=== PATIENT | female | born 1965 | race Caucasian/White ===

== ENCOUNTER → 2016-12-05 | Outpatient (CLI) | payer OTHER ==
[~2016-12-05] MED LIST: ALBU1AER9 INH; AMIT75TA2 PO; BISM262S7 PO; CALC500C3 PO; CETI10TA10 PO; CHOL100010 PO; CYAN100020 PO; MAGN400T6 PO; MOME200A INH; MULTTAB58 PO; NAPR-1169 PO; NXM/40 PO; RANI150T3 PO; SYN125 PO
--- NOTE | 2016-12-05 13:18 | DIAGNOSTIC IMAGING REPORT ---
NUCLEAR GASTRIC EMPTYING STUDY HISTORY: Nausea K21.9 Acid reflux [id number] LuvnntdevprV37.0 Abdominal bloat COMPARISON: None. TECHNIQUE: Following the oral administration of 1.1 mCi of technetium 99m sulfur colloid in egg sandwich and 8 ounces of water, static abdominal images are obtained anteriorly and posteriorly at 0 minutes, 1 hour, 2 hour, and 4 hour time intervals. Gastric emptying was calculated utilizing the geometric mean method. FINDINGS: There is approximately 91 % activity remaining at the 1 hour time interval (normal is less than 90%), 84 % remaining at the 2 hour time interval (normal is less than 60%), and 11 % activity remaining at the 4 hour time interval (normal is less than 10%). IMPRESSION: Mild gastric emptying delay Electronically signed by: Shan Ortega M.D. 12/05/2016 1:17 PM Dictated Date/Time: 12/05/2016 1:15 PM
== END | disposition home or self-care (01) ==
LOC: C.NUCL 08:00
PROVIDERS: ATTEND Registered Nurse
DX: K20.9 Esophagitis, unspecified (principal); K21.9 Gastro-esophageal reflux disease without esophagitis; K22.2 Esophageal obstruction; R14.0 Abdominal distension (gaseous)

== ENCOUNTER → 2016-12-19 | Outpatient (CLI) | payer OTHER ==
[2016-12-19 09:33] LABS: HEMATOCRIT 41.4 % (37-47); MEAN CELL VOLUME 86.4 fL (80-100); MEAN CORPUSCULAR HEMOGLOBIN 29.2 pg (25-34); MEAN CORPUSCULAR HGB CONC 33.8 g/dl (32-36); MEAN PLATELET VOLUME 9.8 fL (7.4-10.4); PLATELET COUNT 281 K/uL (130-400); RED BLOOD COUNT 4.79 M/uL (4.2-5.4); WHITE BLOOD COUNT 5.07 K/uL (4.8-10.8)
[2016-12-19 09:53] LABS: BLOOD UREA NITROGEN 14 mg/dl (7-18); BUN/CREATININE RATIO 17.4 (10-20); CALCIUM 9.4 mg/dl (8.5-10.1); CARBON DIOXIDE 27 mmol/L (21-32); CHLORIDE 107 mmol/L (98-107); CREATININE 0.82 mg/dl (0.60-1.20); GLUCOSE 94 mg/dl (70-99); POTASSIUM 4.3 mmol/L (3.5-5.1); SODIUM 142 mmol/L (136-145)
== END | disposition home or self-care (01) ==
LOC: C.LAB1850 08:27
PROVIDERS: ATTEND Family Medicine
DX: R53.83 Other fatigue (principal); E06.3 Autoimmune thyroiditis

== ENCOUNTER → 2016-12-21 | Outpatient (CLI) | payer OTHER ==
--- NOTE | 2016-12-21 10:10 | DIAGNOSTIC IMAGING REPORT ---
ULTRASOUND RIGHT UPPER QUADRANT ABDOMEN CLINICAL HISTORY: Right upper quadrant abdominal pain. COMPARISON STUDY: No priors. TECHNIQUE: Real-time, grayscale, and color flow sonography of the right upper quadrant of the abdomen was performed. Images are reviewed in the transverse and longitudinal planes. FINDINGS: Liver: The liver is normal in size and demonstrates heterogeneously increased echotexture consistent with hepatic steatosis. There is no intrahepatic biliary ductal dilatation. The main portal vein is patent. Gallbladder: The gallbladder is normal in appearance. No gallstones are identified. There is no gallbladder wall thickening or pericholecystic fluid. A sonographic Palumbo's sign is reportedly absent. The common bile duct measures up to 0.4 cm in diameter. Pancreas: Not well visualized due to overlying bowel gas. Right kidney: Survey images of the right kidney demonstrate normal size and echotexture. There is no hydronephrosis. Cortical scarring is suggested in the lower pole. Ascites: None. IMPRESSION: 1. No acute sonographic abnormality is identified in the right upper quadrant. No gallstones are seen. 2. Hepatic steatosis. 3. The pancreas was not well visualized due to overlying bowel gas. Electronically signed by: Chito Lira M.D. 12/21/2016 10:09 AM Dictated Date/Time: 12/21/2016 10:08 AM
== END | disposition home or self-care (01) ==
LOC: C.ULTRBC 08:37
PROVIDERS: ATTEND Registered Nurse
DX: R10.11 Right upper quadrant pain (principal); K76.0 Fatty (change of) liver, not elsewhere classified

== ENCOUNTER → 2017-02-25 | Outpatient (CLI) | payer OTHER ==
[2017-02-25 17:52] LABS: ALKALINE PHOSPHATASE 127 U/L (45-117); ALT/SGPT 35 U/L (12-78); AST/SGOT 21 U/L (15-37); THYROID STIMULATING HORMONE 0.096 uIu/ml (0.300-4.500)
[2017-02-26 07:31] LABS: ESTIMATED AVERAGE GLUCOSE 123 mg/dl; HA1C FLAG Normal (Normal)
== END | disposition home or self-care (01) ==
LOC: C.LAB1850 15:46
PROVIDERS: ATTEND Family Medicine
DX: R53.83 Other fatigue (principal); E03.9 Hypothyroidism, unspecified; B35.1 Tinea unguium

== ENCOUNTER → 2017-03-15 | Outpatient (CLI) | payer OTHER ==
[2017-03-15 17:01] LABS: ALKALINE PHOSPHATASE 117 U/L (45-117); ALT/SGPT 45 U/L (12-78); AST/SGOT 29 U/L (15-37)
== END | disposition home or self-care (01) ==
LOC: C.LAB1850 15:21
PROVIDERS: ATTEND Family Medicine
DX: R74.8 Abnormal levels of other serum enzymes (principal)

== ENCOUNTER → 2017-05-06 | Outpatient (CLI) | payer OTHER ==
[2017-05-06 15:12] LABS: THYROID STIMULATING HORMONE 0.109 uIu/ml (0.300-4.500)
== END | disposition home or self-care (01) ==
LOC: C.LAB1850 12:54
PROVIDERS: ATTEND Family Medicine
DX: E03.9 Hypothyroidism, unspecified (principal)

== ENCOUNTER → 2017-05-06 | Outpatient (CLI) | payer OTHER ==
--- NOTE | 2017-05-06 16:13 | MAMMOGRAPHY REPORT ---
BILATERAL DIGITAL SCREENING MAMMOGRAM TOMOSYNTHESIS WITH CAD: 05/06/2017 CLINICAL HISTORY: Routine screening. TECHNIQUE: Breast tomosynthesis in addition to standard 2D mammography was performed. Current study was also evaluated with a Computer Aided Detection (CAD) system. COMPARISON: Comparison is made to exams dated: 05/03/2016 mammogram - [facility], mammogram, 02/19/2014 mammogram, 02/06/2014 mammogram, 01/31/2013 mammogram, and 12/29/2011 mammog [facility]. BREAST COMPOSITION: There are scattered areas of fibroglandular density in both breasts. FINDINGS: No suspicious masses, calcifications, or areas of architectural distortion are noted in ei ther breast. There has been no significant interval change compared to prior exams. Bilateral benign -appearing calcifications are not significantly changed. A linear scar marker denotes a scar on the left anterior breast. Asymmetry in the right 12:00 breast is stable compared to multiple prior exams . IMPRESSION: ACR BI-RADS CATEGORY 2: BENIGN There is no mammographic evidence of malignancy. A 1 year screening mammogram is recommended. The pa tient will receive written notification of the results. Approximately 10% of breast cancers are not detected with mammography. A negative mammographic report should not delay biopsy if a clinically suggestive mass is present. Linda Braun M.D. /:05/06/2017 15:19:39 Radio Engineer: Ronen ABURTO)(Cathleen), [facility] letter sent: Normal 1/2 BI-RADS Code: ACR BI-RADS Category 2: Benign
== END | disposition home or self-care (01) ==
LOC: C.MAMM 13:08
PROVIDERS: ATTEND Obstetrics & Gynecology
DX: Z12.31 Encounter for screening mammogram for malignant neoplasm of breast (principal)

== ENCOUNTER → 2017-06-20 | Outpatient (CLI) | payer OTHER ==
[2017-06-20 17:30] LABS: THYROID STIMULATING HORMONE 0.152 uIu/ml (0.300-4.500)
== END | disposition home or self-care (01) ==
LOC: C.LAB1850 15:48
PROVIDERS: ATTEND Internal Medicine Endocrinology, Diabetes & Metabolism
DX: E03.9 Hypothyroidism, unspecified (principal)

== ENCOUNTER → 2017-08-27 | Outpatient (CLI) | payer OTHER ==
--- NOTE | 2017-08-27 12:30 | DIAGNOSTIC IMAGING REPORT ---
CHEST 2 VIEWS ROUTINE HISTORY: 51 years-old Female J20.9 Acute bronchitisPt with cough and SOB, exposure to mold. Acute bronchitis with cough and shortness of breath COMPARISON: Chest radiograph 09/21/2014 TECHNIQUE: PA and lateral views of the chest FINDINGS: The cardiomediastinal and hilar silhouettes are within normal limits. There is no pneumothorax, pleural effusion, focal airspace consolidation or overt pulmonary edema. Subtle linear subsegmental opacities of the left lung base suggest areas of pleural-parenchymal scarring. Bones of the chest are grossly intact. IMPRESSION: No acute cardiopulmonary process. No focal airspace consolidation to suggest pneumonia. The above report was generated using voice recognition software. It may contain grammatical, syntax or spelling errors. Electronically signed by: Garcia Magaña M.D. 08/27/2017 12:29 PM Dictated Date/Time: 08/27/2017 12:28 PM
[2017-08-27 13:56] LABS: THYROID STIMULATING HORMONE 0.303 uIu/ml (0.300-4.500)
== END | disposition home or self-care (01) ==
LOC: C.RAD1850 11:54
PROVIDERS: ATTEND Internal Medicine Endocrinology, Diabetes & Metabolism
DX: J20.9 Acute bronchitis, unspecified (principal); E03.9 Hypothyroidism, unspecified

== ENCOUNTER → 2017-09-27 | Outpatient (CLI) | payer OTHER ==
[2017-09-27 09:37] LABS: BASO % 0.5 %; BASO ABS # 0.02 K/uL (0-0.2); COMPLETE YES; EOS % 2.3 %; LYMPH ABS # 1.76 K/uL (1.2-3.4); MEAN CELL VOLUME 90.9 fL (80-100); MEAN CORPUSCULAR HEMOGLOBIN 29.4 pg (25-34); MEAN CORPUSCULAR HGB CONC 32.3 g/dl (32-36); MEAN PLATELET VOLUME 10.3 fL (7.4-10.4); NEUT % 47.2 %; PLATELET COUNT 256 K/uL (130-400); RED BLOOD COUNT 4.73 M/uL (4.2-5.4)
[2017-09-27 09:47] LABS: ALT/SGPT 39 U/L (12-78); BLOOD UREA NITROGEN 16 mg/dl (7-18); BUN/CREATININE RATIO 17.5 (10-20); CALCIUM 8.9 mg/dl (8.5-10.1); CARBON DIOXIDE 28 mmol/L (21-32); CHLORIDE 106 mmol/L (98-107); CHOLESTEROL 187 mg/dl (0-200); CREATININE 0.89 mg/dl (0.60-1.20); GLUCOSE 87 mg/dl (70-99); POTASSIUM 4.1 mmol/L (3.5-5.1); SODIUM 140 mmol/L (136-145); TRIGLYCERIDES 87 mg/dl (0-150); VERY LOW DENSITY LIPOPROT CALC 17 mg/dl
[2017-09-27 09:58] LABS: ALKALINE PHOSPHATASE 102 U/L (45-117); AST/SGOT 26 U/L (15-37); CHOLESTEROL/HDL RATIO 3.5; HDL CHOLESTEROL 53 mg/dl; LDL CHOLESTEROL CALCULATED 117 mg/dl; THYROID STIMULATING HORMONE 0.526 uIu/ml (0.300-4.500)
== END | disposition home or self-care (01) ==
LOC: C.LAB1850 07:07
PROVIDERS: ATTEND Neuromusculoskeletal Medicine & OMM
DX: Z00.00 Encounter for general adult medical examination without abnormal findings (principal); E03.9 Hypothyroidism, unspecified; R53.83 Other fatigue; R42 Dizziness and giddiness

== ENCOUNTER → 2018-01-08 | Outpatient (CLI) | payer OTHER ==
[2018-01-08 17:53] LABS: BLOOD UREA NITROGEN 16 mg/dl (7-18); CALCIUM 9.2 mg/dl (8.5-10.1); CARBON DIOXIDE 30 mmol/L (21-32); CREATININE 0.91 mg/dl (0.60-1.20); GLUCOSE 81 mg/dl (70-99); POTASSIUM 4.1 mmol/L (3.5-5.1); SODIUM 141 mmol/L (136-145)
== END | disposition home or self-care (01) ==
LOC: C.LAB1850 16:10
PROVIDERS: ATTEND Physician Assistant Medical
DX: E03.9 Hypothyroidism, unspecified (principal); R00.0 Tachycardia, unspecified

== ENCOUNTER → 2018-01-22 | Outpatient (CLI) | payer OTHER | END | disposition home or self-care (01) | LOC: C.LAB1850 15:49 | PROVIDERS: ATTEND Internal Medicine Endocrinology, Diabetes & Metabolism | DX: E03.9 Hypothyroidism, unspecified (principal) ==

== ENCOUNTER → 2018-05-07 | Outpatient (CLI) | payer OTHER ==
[~2018-05-07] MED LIST changes: -NAPR-1169 PO; +NAPR-22 PO
== END | disposition home or self-care (01) ==
LOC: C.LAB1850 15:47
PROVIDERS: ATTEND Physician Assistant
DX: E03.9 Hypothyroidism, unspecified (principal)

== ENCOUNTER 2024-02-17 09:12 | Observation (INO) ==
--- NOTE | 2024-02-17 09:33 | Emergency Department Note ---
History of Present Illness General Chief complaint: Shortness of Breath/Dyspnea Stated complaint: TROUBLE BREATHING, COUGH, CHEST PAINS Time Seen by Provider: 02/17/24 09:25 History of Present Illness Maximum Pain Intensity: 3 This is a 58-year-old female that presents to the emergency department via private vehicle with complaints of "trouble breathing, cough, chest pain". The patient states that this past Saturday she developed what she describes as cold-like symptoms to include cough, sneezing and a sore throat. She then notes that the breathing worsened on Saturday evening and she could not take a deep breath. She also notes intermittent temperature fluctuations described as freezing, sweating and cold. She now notes that the nose and draining a darkish yellow with a small amount of blood and there is also yellow sputum when she coughs. She notes a history of smoking but last of which was 31 years ago. No history of COPD. She does note a history of asthma. She does have some central chest pain with the dyspnea. Current pain 12/21. No history of LA or PE. Home Medications Medication Instructions Recorded Confirmed Type cyanocobalamin (vitamin B-12) 1 tab PO QAM ##0 01/04/16 02/17/24 History 1,000 mcg tablet multivitamin 1 cap PO QAM ##0 09/20/16 02/17/24 History cetirizine 10 mg tablet (Zyrtec) 10 mg PO HS #1 tab 05/18/19 02/17/24 Rx cholecalciferol (vitamin D3) 10 400 units PO DAILY #90 tabs 05/18/19 02/17/24 Rx mcg (400 unit) tablet fluticasone furoate 200 1 inh inhalation DAILY #180 ea 09/04/23 02/17/24 Rx mcg-vilanterol 25 mcg/dose inhalation powder (Breo Ellipta) levothyroxine 125 mcg tablet 125 mcg PO QAM #30 tabs 09/18/23 02/17/24 Rx sertraline 100 mg tablet 150 mg (1.5 x 100 mg) PO DAILY 90 01/07/24 02/17/24 Rx days #135 tabs clobetasol 0.05 % topical cream 1 applic topical DAILY PRN Rash 02/17/24 02/17/24 History Allergies Allergy/AdvReac Type Severity Reaction Status Date / Time Sulfa (Sulfonamide Allergy Mild RASH Verified 12/27/23 13:03 Antibiotics) latex Allergy Unknown RASH Verified 12/27/23 13:03 morphine Allergy Unknown VOMITING Verified 12/27/23 13:03 animal dander Allergy Verified 12/27/23 13:03 bupropion [From Wellbutrin] Allergy Verified 12/27/23 13:03 desvenlafaxine [From Pristiq] Allergy Verified 12/27/23 13:03 duloxetine [From Cymbalta] Allergy Verified 12/27/23 13:03 grass pollen Allergy Verified 12/27/23 13:03 house dust Allergy Verified 12/27/23 13:03 mold Allergy Verified 12/27/23 13:03 topiramate [From Topamax] Allergy Verified 12/27/23 13:03 tuberculin,PPD,multi-puncture Allergy Verified 12/27/23 13:03 venlafaxine Allergy Verified 12/27/23 13:03 citalopram AdvReac Verified 12/27/23 13:03 escitalopram [From Lexapro] AdvReac Verified 12/27/23 13:03 Venlafaxine Analogues AdvReac Verified 12/27/23 13:03 Past Med/Surg History Medical History COVID-19 Lichen sclerosus GERD (gastroesophageal reflux disease) Depression Anxiety Migraine Tachycardia Hypertension Sleep apnea HAD SLEEP STUDY TEST, NO CPAP OR BIPAP ORDERED Lung nodules Asthma Hypothyroid Surgical History Nausea and vomiting after administration of anesthetic agent History of breast biopsy L BENIGN History of dilatation and curettage History of total hip arthroplasty R HIP X2 History of esophagogastroduodenoscopy (EGD) History of tooth extraction WISDOM TEETH History of tonsillectomy Family History Mother Diabetes Kidney disease Congestive heart failure Unknown Family history of diabetes mellitus Son Asthma Father Carotid artery aneurysm Brother Dyslipidemia Brother Dyslipidemia Brother No problems noted. Son No problems noted. Daughter No problems noted. Denies family history of Ovarian cancer Prostate cancer Myocardial infarction Breast cancer Colorectal cancer Social History Smoking Status: Former smoker Tobacco Type: Cigarettes Age Started Using Tobacco: 14; Age Quit Using Tobacco: 28; packs per day: 1; Cigarettes Per Day: 20; Second Hand Exposure: No (PARENTS, BROTHER, SMOKED); Do You Dip or Chew Tobacco: No; Hx Alcohol Use: No Hx Substance Use: No Preferred Language: French Communication Ability: Effective Visual Impairment: No Limitations Hearing Ability: Normal Administrative Assistant Required: No Beliefs That Will Affect Care: None marital status: Current Living Situation: Spouse current occupational status: employed current occupation: nurse educator How many Children do You have: 3 Other Information That Helps Us Care for You: No Feels Safe at Home: Yes Safety Concerns: Feels Safe At This Time Childhood Exposure to Second-Hand Smoke: Yes Diet: regular caffeine: Yes during the past year weight has: remained stable Dental Care, Regularly: Yes Physical Activity Frequency: Daily Seatbelt Use: always Sunscreen Use: Yes Assistive Devices: Glasses Review of Systems A total of 10 systems reviewed and were otherwise negative Physical Exam Vital Signs Vital Signs - 24 hr 02/17/24 09:20 02/17/24 09:30 02/17/24 09:30 Temperature 36.1 C L Temperature Source Temporal Artery Scan Pulse Rate 88 Pulse Rate [Apical] Pulse Rhythm Respiratory Rate 26 H Respiratory Effort / Characteristics Labored Blood Pressure 120/76 Blood Pressure [Left Arm] Blood Pressure Mean 90 Blood Pressure Mean [Left Arm] Blood Pressure Position [Left Arm] Pulse Oximetry 96 96 Oxygen Delivery Method Room Air Room Air Room Air Sepsis New/Unexplained Change in Mental Status No Sepsis Action Taken by Nursing No Action Required 02/17/24 09:30 02/17/24 09:31 02/17/24 09:56 Temperature Temperature Source Pulse Rate 79 84 Pulse Rate [Apical] 84 Pulse Rhythm Regular Respiratory Rate 26 H 18 Respiratory Effort / Characteristics Spontaneous Short of Breath Blood Pressure Blood Pressure [Left Arm] Blood Pressure Mean Blood Pressure Mean [Left Arm] Blood Pressure Position [Left Arm] Pulse Oximetry 96 95 Oxygen Delivery Method Room Air Room Air Sepsis New/Unexplained Change in Mental Status Sepsis Action Taken by Nursing 02/17/24 11:10 Temperature Temperature Source Pulse Rate Pulse Rate [Apical] 78 Pulse Rhythm Respiratory Rate 18 Respiratory Effort / Characteristics Blood Pressure Blood Pressure [Left Arm] 139/65 Blood Pressure Mean Blood Pressure Mean [Left Arm] 89 Blood Pressure Position [Left Arm] Sitting Pulse Oximetry 98 Oxygen Delivery Method Sepsis New/Unexplained Change in Mental Status Sepsis Action Taken by Nursing VITAL SIGNS - Vital signs and nursing notes were reviewed. Tachypnic, otherwise stable. Afebrile. GENERAL -58-year-old female appearing her stated age who is in mild respiratory distress noting increased work of breathing and conversational dyspnea. Communicates well with provider and answers questions appropriately. SKIN - Without rashes. HEAD - NC/AT. EYES - PERRL with EOMI bilaterally. Sclera anicteric. EARS - No deformities of external structures noted on gross examination bilaterally. External auditory canals without discharge or otorrhea. Tympanic membranes pearly sibley without retraction or bulging. No fluid or purulent material visualized behind the TM. Handle of malleus, umbo, cone of light, pars tensa/flaccid all easily visualized. NOSE - Midline and without cyanosis. No epistaxis or purulent drainage noted. Septum midline without deviation or septal hematoma noted. MOUTH/OROPHARYNX - Without perioral cyanosis. Buccal mucosa pink and moist and without leukoplakia. Tongue midline with equal elevation of palate bilaterally. No tonsillar hypertrophy, erythema, or exudates noted. NECK - Neck with FROM. Supple to palpation. No lymphadenopathy noted. No nuchal rigidity. LUNGS -his bilateral expiratory wheezing noted. No drooling, stridor, trismus or tripoding. Normal phonation. Mild conversational dyspnea. CARDIAC - RRR with S1/S2. No murmur, rubs, or gallops appreciated. EXTREMITIES - No clubbing or peripheral cyanosis. +5/5 strength noted in UE/LE bilaterally. NEUROLOGIC - Cranial nerves II through XII grossly intact. PSYCH - A&Ox3 and cooperates fully with examiner. Pt is very pleasant and interacts well with examiner. Course Administered Medications Albuterol (Albut/Ipratrop 3mg/0.5mg Neb 3 Ml Vial) 3 ml INH Q6R MATT Stop: 03/18/24 13:18 Last Admin: 02/17/24 14:02 Dose: 3 ml Documented By: EAM Discontinued Medications Albuterol (Albut/Ipratrop 3mg/0.5mg Neb 3 Ml Vial) 12 ml NEB ONE ONE; Protocol Stop: 02/17/24 09:34 Last Admin: 02/17/24 09:54 Dose: 12 ml Documented By: BEBE Ceftriaxone Sodium (Rocephin) 2,000 mg in 50 mls @ 100 mls/hr IV NOW STA Stop: 02/17/24 12:27 Last Infusion: 02/17/24 14:34 Dose: Infused Documented By: Admin: 02/17/24 12:34 Dose: 100 mls/hr Documented By: SANDOR Sodium Chloride (Nss) 1,000 mls @ 500 mls/hr IV .Q2H MATT Stop: 02/17/24 13:59 Last Infusion: 02/17/24 14:37 Dose: Infused Documented By: Admin: 02/17/24 12:35 Dose: 500 mls/hr Documented By: SANDOR Dexamethasone 10 mg/ Syringe 2.5 mls @ 1.25 mls/min IV ONE STA Stop: 02/17/24 12:30 Last Admin: 02/17/24 13:36 Dose: 1.25 mls/min Documented By: SANDOR Magnesium Sulfate/Dextrose (Magnesium Sulfate / D5w) 1 gm in 100 mls @ 600 mls/hr IV Q10M MATT Stop: 02/17/24 12:51 Last Infusion: 02/17/24 14:34 Dose: Infused Documented By: Admin: 02/17/24 13:15 Dose: 600 mls/hr Documented By: Infusion: 02/17/24 13:14 Dose: Infused Documented By: Admin: 02/17/24 12:54 Dose: 600 mls/hr Documented By: SANDOR Azithromycin 500 mg/ Dextrose 255 mls @ 127.5 mls/hr IV NOW STA Stop: 02/17/24 14:34 Last Infusion: 02/17/24 15:42 Dose: Infused Documented By: Admin: 02/17/24 13:38 Dose: 127.5 mls/hr Documented By: SANDOR Ioversol (Optiray 320 125ml) 119 ml IV ONCE ONE Stop: 02/17/24 11:51 Last Admin: 02/17/24 11:51 Dose: 119 ml Documented By: LYNNE Methylprednisolone (Methylprednisolone 125 Mg/2 Ml Vial) 60 mg IV NOW STA Stop: 02/17/24 11:59 Last Admin: 02/17/24 12:35 Dose: Not Given Documented By: SANDOR Medical Decision Making Laboratory Data 02/17/24 09:30 02/17/24 09:30 Lab Results 02/17/24 02/17/24 02/17/24 Range/Units 09:30 09:37 10:17 WBC 5.86 (4.8-10.8) K/ul RBC 5.21 (4.20-5.40) M/uL Hgb 15.3 (12.0-16.0) g/dl Hct 45.3 (37.0-47.0) % MCV 86.9 (80.0-100.0) fL MCH 29.4 (25.0-34.0) pg MCHC 33.8 (32.0-36.0) g/dL RDW Std Deviation 45.6 (36.4-46.3) fL RDW Coeff of Velia 14.2 (11.5-14.5) % Plt Count 256 (130-400) K/uL MPV 9.8 (9.4-12.4) fL Immature Gran % (Auto) 0.2 % Neut % (Auto) 43.6 % Lymph % (Auto) 41.0 % Morton % (Auto) 11.1 % Eos % (Auto) 3.4 % Baso % (Auto) 0.7 % Neut # (Auto) 2.56 (1.40-6.50) K/uL Lymph # (Auto) 2.40 (1.20-3.40) K/uL Morton # (Auto) 0.65 H (0.11-0.59) K/uL Eos # (Auto) 0.20 (0.00-0.50) K/uL Baso # (Auto) 0.04 (0.00-0.20) K/uL Immature Gran # (Auto) 0.01 (0.01-0.20) K/uL Toxic Vacuolation 1+ PT 10.3 (9.0-12.0) Seconds INR 0.9 (0.9-1.1) APTT 28 (21-31) Seconds PTT Ratio 1.0 D-Dimer 840 H* (0-500) ug/L FEU VBG pH 7.49 H (7.36-7.41) VBG pCO2 31 L (38-50) mmHg VBG pO2 64 mmHg VBG HCO3 24 mmol/L VBG O2 Saturation 93.4 % VBG Base Excess 1.0 mEq/L Sodium 138 (136-145) mmol/L Potassium 3.9 (3.5-5.1) mmol/L Chloride 105 (98-107) mmol/L Carbon Dioxide 25 (21-32) mmol/L Anion Gap 8 (3-11) BUN 11 (6-23) mg/dl Creatinine 0.63 (0.6-1.2) mg/dl Est Cr Clr Drug Dosing 98.8 ml/min Est GFR ( Amer) 113.0 ml/min Est GFR (Non-Af Amer) 97.5 ml/min BUN/Creatinine Ratio 17.5 (10-20) Glucose 88 (70-99(Fasting)) mg/dl Calcium 9.0 (8.6-10.3) mg/dl Magnesium 2.2 (1.7-2.4) mg/dl Total Bilirubin 0.7 (0.2-1.0) mg/dl AST 22 (13-39) U/L ALT 22 (7-52) U/L Alkaline Phosphatase 69 (34-104) U/L Troponin I High Sens 2.9 (0-14) pg/ml Total Protein 7.8 (6.0-8.3) gm/dl Albumin 4.3 (3.4-5.0) gm/dl Globulin 3.5 (2.5-4.0) gm/dl Albumin/Globulin Ratio 1.2 (0.9-2) Procalcitonin 0.14 (0-0.5) ng/ml TSH 0.349 (0.300-4.500) uIu/ml Adenovirus (PCR) Not Detected (NotDetected) B. pertussis DNA (PCR) Not Detected (NotDetected) B.parapertussis DNA PCR Not Detected (NotDetected) C. pneumoniae DNA (PCR) Not Detected (NotDetected) Coronavirus OC43 (PCR) Not Detected (NotDetected) Coronavirus HKU1 (PCR) Not Detected (NotDetected) Coronavirus 229E (PCR) Not Detected (NotDetected) SARS-CoV-2 (PCR) Not Detected (NotDetected) Coronavirus NL63 (PCR) Not Detected (NotDetected) Human Metapneumovir PCR Not Detected (NotDetected) Influenza Type A (PCR) Not Detected (NotDetected) Influenza Type B (PCR) Not Detected (NotDetected) M. pneumoniae (PCR) Not Detected (NotDetected) Parainfluenza 1 (PCR) Not Detected (NotDetected) Parainfluenza 2 (PCR) Not Detected (NotDetected) Parainfluenza 3 (PCR) DETECTED A (NotDetected) Parainfluenza 4 (PCR) Not Detected (NotDetected) RSV (PCR) Not Detected (NotDetected) Entero/Rhino (PCR) Not Detected (NotDetected) Imaging Data Radiologist's Impression: Chest X-Ray 02/17/24 09:32 XR chest 1V portable HISTORY: dyspnea COMPARISON: Chest 07/06/2021. FINDINGS: The lungs are clear. Cardiac silhouette is normal in size. No pleural effusions. No pneumothorax. IMPRESSION: No acute process. ACT 112: Negative or not required by law. Electronically signed by: Jeramie Brooks M.D. 02/17/2024 10:00 AM Chest CTA 02/17/24 10:54 CT ANGIOGRAPHY OF THE CHEST, PULMONARY EMBOLUS PROTOCOL CLINICAL HISTORY: dyspnea, elevated D dimer COMPARISON STUDY: Chest CT July 25, 2023. Chest radiograph performed earlier today. TECHNIQUE: Following IV administration of 119 mL of Optiray, helical axial images of the chest were obtained utilizing the pulmonary embolus protocol. Maximal intensity projections and sagittal and coronal reformats were viewed on an independent 3D workstation. IV contrast was administered without complication. Automated exposure control was utilized for the study. A dose lowering technique was utilized adhering to the principles of ALARA. CT DOSE: 709.16 mGy.cm FINDINGS: No pulmonary emboli are identified although this exam is significantly compromised by respiratory motion artifact which obscures the lower lobe pulmonary arteries. There is no thoracic aortic dissection. Size of the heart is normal. There is no pericardial effusion. Prominent bilateral lower cervical and upper mediastinal lymph nodes have increased in size since CT of July 25, 2023. An index left level 4 cervical lymph node on image 199 measures 8 mm in short axis diameter. A right paratracheal lymph node on image 170 measures 0.7 cm. The central airways are patent. Lungs are suboptimally assessed due to respiratory motion. Moderate alveolar opacities within the right middle lobe are present. There is no cavitation. Central airways are patent. There is no pneumothorax or pleural effusion. Visualized portions of the upper abdomen are unremarkable. IMPRESSION: 1. Exam significantly compromised by respiratory motion. No pulmonary emboli identified. 2. Moderate right middle lobe alveolar opacities suggestive of pneumonia. 3. Prominent bilateral lower cervical and upper mediastinal lymph nodes. Although indeterminate, these are probably benign and may be reactive. A follow- up chest CT in 6 months to ensure resolution is recommended. ACT 112: Negative or not required by law. Electronically signed by: Mc Giles M.D. 02/17/2024 12:22 PM MDM Narrative Patient was seen and evaluated as above in room C09. Review was performed of triage nursing notes and vital signs. A thorough history and physical examination was performed. She presents to us today for evaluation of trouble breathing, cough and chest pain. This has progressively been worsening since this past Saturday when she developed cold-like symptoms. She does have wheezing on examination which is quite audible. Options of care were discussed with the patient. IV access was established. Labs were drawn. EKG was performed and reveals normal sinus rhythm at a rate of 85 bpm. QTc 404. QRS 82. There is no ST elevation. Labs reveal no leukocytosis or concerning anemia. D-dimer elevated 840 therefore chest x-ray was complemented by a CT scan of the chest. VBG pH 7.49 with a pCO2 of 31. No evidence of kidney or liver failure emergently. Troponin normal. TSH reveals euthyroid state. Bio fire panel was positive for parainfluenza 3. Chest x-ray was negative. CT of the chest does reveal moderate right middle lobe alveolar opacities suggestive of pneumonia. I do believe that further evaluation and management in the inpatient setting is warranted noting the patient's persistent wheezing and trouble breathing. DuoNeb breathing treatment was provided here, as well as IV fluids, IV steroids, IV ceftriaxone. Case discussed with the hospitalist service. Please refer to further documentation regarding her stay. GCS: 15 In the evaluation and treatment of this patient the following differential diagnoses were entertained: LA, PE, pericarditis, costochondritis, pneumonia, pneumothorax, among others Impression & Plan Asthma exacerbation, Parainfluenza virus infection, Bilateral wheezing, Acute dyspnea Discharge Plan Visit Data Chief Complaint: Shortness of Breath/Dyspnea Stated Complaint: TROUBLE BREATHING, COUGH, CHEST PAINS ED Provider: Kimo Mays ED Midlevel Provider: Parish Carrasco Discharge Problem: Asthma exacerbation, Parainfluenza virus infection, Bilateral wheezing, Acute dyspnea Patient Disposition: Admitted As Inpatient Condition: Good Discharge Instructions Interventions: ED Discharge Assessment Last Done: 02/17/24 13:02
[2024-02-17] MEDS: ALBUT/IPRATROP 3MG/0.5MG NEB 3 ML VIAL NEB ONE (09:54)
[2024-02-17 09:59] LABS: Hematocrit (blood only) 45.3 % (37.0-47.0); Hemoglobin 15.3 g/dl (12.0-16.0); Mean Corpuscular Hemoglobin 29.4 pg (25.0-34.0); Mean Corpuscular Hgb Conc 33.8 g/dL (32.0-36.0); Mean Corpuscular Volume 86.9 fL (80.0-100.0); Mean Platelet Volume 9.8 fL (9.4-12.4); Platelet Count 256 K/uL (130-400); RDW Coefficient of Variation 14.2 % (11.5-14.5); RDW Standard Deviation 45.6 fL (36.4-46.3); Red Blood Count 5.21 M/uL (4.20-5.40); White Blood Count 5.86 K/ul (4.8-10.8)
--- NOTE | 2024-02-17 10:01 | XRay Report ---
XR chest 1V portable HISTORY: dyspnea COMPARISON: Chest 07/06/2021. FINDINGS: The lungs are clear. Cardiac silhouette is normal in size. No pleural effusions. No pneumot horax. IMPRESSION: No acute process. ACT 112: Negative or not required by law. Electronically signed by: Jeramie Brooks M.D. 02/17/2024 10:00 AM
[2024-02-17 10:13] LABS: Albumin Globulin Ratio 1.2 (0.9-2); Albumin Level 4.3 gm/dl (3.4-5.0); BUN Creatinine Ratio 17.5 (10-20); Bilirubin,Total 0.7 mg/dl (0.2-1.0); Creatinine Clr Calc Pharmacy 98.8 ml/min; Est GFR (Non-African American) 97.5 ml/min; Globulin 3.5 gm/dl (2.5-4.0); Magnesium 2.2 mg/dl (1.7-2.4); Potassium 3.9 mmol/L (3.5-5.1); Total Protein 7.8 gm/dl (6.0-8.3)
[2024-02-17 10:18] LABS: Troponin I High Sensitivity 2.9 pg/ml (0-14)
[2024-02-17 10:20] LABS: INR 0.9 (0.9-1.1); Partial Thromboplastin Time 28 Seconds (21-31); Prothrombin Time 10.3 Seconds (9.0-12.0)
[2024-02-17 10:21] LABS: Basophils # (auto) 0.04 K/uL (0.00-0.20); Basophils % (auto) 0.7 %; Eosinophils % (auto) 3.4 %; Immature Granulocytes # (auto) 0.01 K/uL (0.01-0.20); Immature Granulocytes % (auto) 0.2 %; Monocytes # (auto) 0.65 K/uL (0.11-0.59); Monocytes % (auto) 11.1 %; Neutrophils # (auto) 2.56 K/uL (1.40-6.50); Neutrophils % (auto) 43.6 %; Toxic Vacuolation 1+
[2024-02-17 10:27] LABS: Thyroid Stimulating Hormone 0.349 uIu/ml (0.300-4.500)
[2024-02-17 10:28] LABS: HCO3 VBG 24 mmol/L; Oxygen Saturation VBG 93.4 %; PCO2 VBG 31 mmHg (38-50); PO2 VBG 64 mmHg; pH VBG 7.49 (7.36-7.41)
[2024-02-17 10:36] LABS: D Dimer 840 ug/L FEU (0-500)
[2024-02-17 10:40] LABS: Adenovirus PCR Not Detected (NotDetected); Bordetella parapertussis PCR Not Detected (NotDetected); Bordetella pertussis PCR Not Detected (NotDetected); Chlamydia pneumoniae PCR Not Detected (NotDetected); Coronavirus 229E PCR Not Detected (NotDetected); Coronavirus CoV-2 (COVID19)PCR Not Detected (NotDetected); Coronavirus HKU1 PCR Not Detected (NotDetected); Coronavirus NL63 PCR Not Detected (NotDetected); Coronavirus OC43PCR Not Detected (NotDetected); Human Metapneumovirus PCR Not Detected (NotDetected); Influenza A PCR Not Detected (NotDetected); Influenza B PCR Not Detected (NotDetected); Mycoplasma pneumoniae PCR Not Detected (NotDetected); Parainfluenza Virus 1 PCR Not Detected (NotDetected); Parainfluenza Virus 2 PCR Not Detected (NotDetected); Parainfluenza Virus 4 PCR Not Detected (NotDetected); Respiratory Syncytial VirusPCR Not Detected (NotDetected); Rhinovirus/Enterovirus PCR Not Detected (NotDetected)
[2024-02-17 10:47] LABS: Parainfluenza Virus 3 PCR DETECTED (NotDetected)
[2024-02-17] MEDS: OPTIRAY 320 125ml IV ONE (11:51)
--- NOTE | 2024-02-17 12:22 | History & Physical Report ---
Date of Service February 17, 2024 Assessment & Plan (1) Parainfluenza virus infection: Plan: Worsening SOB and cold-like symptoms since Sunday 02/11 CXR revealed no acute processes VB.49/31/64/24 Parainfluenza 3 (+) on arrival Standard isolation precautions Chest CTA revealed no pulmonary emboli, but did note moderate RML opacity suggestive of pneumonia No leukocytosis; afebrile Procalcitonin ordered, pending Sputum culture ordered, pending Supportive care with IV fluids and pain control Incentive spirometry, flutter valve Guaifenesin 600 mg p.o. q12h Acetaminophen as needed for body aches/fever Supplemental oxygen as needed to maintain SpO2 >94% Continuous telemetry monitoring A.m. CBC, BMP, mag (2) Asthma exacerbation: Plan: Decadron 4 mg IV q6h Patient reports she does not do well on prednisone/Solu-Medrol Budesonide 0.5 mg neb BIDR Formoterol 20 mcg neb BIDR DuoNeb 3 mL q6r Azithromycin 500 mg IV q24h for now; QTc 404 (3) Hypothyroidism: Plan: TSH WNL Continue levothyroxine (4) Anxiety: Plan: Continue sertraline Plan Disposition: Obs -admit to MedSurg telemetry Full code Regular diet VTE PPx: Lovenox 40 mg SQ q24h History of Present Illness Chief Complaint: SOB/Dyspnea Primary Care Provider: Eulalia Shi MD Adeel is a 58-year-old female with PMH of asthma, hypothyroidism, Graves' disease, depression, anxiety, GERD, and allergic rhinitis. She presented for worsening SOB and cold-like symptoms that began on Sunday 02/11. Patient reports that started with a bad sore throat and sneezing, then progressed Saturday night to chills and night sweats. She has been taking naproxen 1 tablet daily for body aches. She endorses SOB both at rest and with exertion, which is new for her. She also reports that the breathing is worse when she lies flat on her back, and becomes exacerbated with deep breaths, which cause coughing fits. She does not use supplemental oxygen at home. Additional symptoms include loss of taste and smell, wheezing, and 1 episode of hemoptysis (however patient did note that she had a nosebleed just prior to this episode, and did not have hemoptysis prior to the nosebleed). She does not believe she has been around any sick contacts. She does have an inhaler at home, that she normally uses as needed, but she has been requiring it around 3 times per day over the past week. The only medication she took this morning was levothyroxine. In the past, patient reports she has not done well on prednisone tapers, and requests to avoid if possible. No history of DVT/PE. Patient denies smoking, tobacco use, and recent alcohol use. Patient's vitals are stable at time of admission; SpO2 98% on RA. ED course: Rocephin 2000 mg IV DuoNeb 12 mL Solu-Medrol 60 mg IV NSS 1000 mL IV ROS: Patient endorses worsening fatigue, chills, night-sweats, joint pain / body aches, sore throat, loss of taste/smell, chest tightness, productive cough (dark yellow with one episode of blood-tinged sputum; in the setting of right-sided nose bleed; was not coughing up blood prior to nose bleed), wheezing, SOB both at rest and with exertion, and orthopnea. Patient denies fever, dizziness, lightheadedness, UMANZOR, changes in vision, pleuritic CP, pain or pressure in the left arm/jaw, abdominal pain, N/V/D, changes in urinary/bowel habits, or numbness/tingling/swelling/redness in the legs. Allergies Allergy/AdvReac Type Severity Reaction Status Date / Time Sulfa (Sulfonamide Allergy Mild RASH Verified 12/27/23 13:03 Antibiotics) latex Allergy Unknown RASH Verified 12/27/23 13:03 morphine Allergy Unknown VOMITING Verified 12/27/23 13:03 animal dander Allergy Verified 12/27/23 13:03 bupropion [From Wellbutrin] Allergy Verified 12/27/23 13:03 desvenlafaxine [From Pristiq] Allergy Verified 12/27/23 13:03 duloxetine [From Cymbalta] Allergy Verified 12/27/23 13:03 grass pollen Allergy Verified 12/27/23 13:03 house dust Allergy Verified 12/27/23 13:03 mold Allergy Verified 12/27/23 13:03 topiramate [From Topamax] Allergy Verified 12/27/23 13:03 tuberculin,PPD,multi-puncture Allergy Verified 12/27/23 13:03 venlafaxine Allergy Verified 12/27/23 13:03 citalopram AdvReac Verified 12/27/23 13:03 escitalopram [From Lexapro] AdvReac Verified 12/27/23 13:03 Venlafaxine Analogues AdvReac Verified 12/27/23 13:03 Home Medications Medication Instructions Recorded Confirmed Type cyanocobalamin (vitamin B-12) 1 tab PO QAM ##0 01/04/16 02/17/24 History 1,000 mcg tablet multivitamin 1 cap PO QAM ##0 09/20/16 02/17/24 History cetirizine 10 mg tablet (Zyrtec) 10 mg PO HS #1 tab 05/18/19 02/17/24 Rx cholecalciferol (vitamin D3) 10 400 units PO DAILY #90 tabs 05/18/19 02/17/24 Rx mcg (400 unit) tablet fluticasone furoate 200 1 inh inhalation DAILY #180 ea 09/04/23 02/17/24 Rx mcg-vilanterol 25 mcg/dose inhalation powder (Breo Ellipta) levothyroxine 125 mcg tablet 125 mcg PO QAM #30 tabs 09/18/23 02/17/24 Rx sertraline 100 mg tablet 150 mg (1.5 x 100 mg) PO DAILY 90 01/07/24 02/17/24 Rx days #135 tabs clobetasol 0.05 % topical cream 1 applic topical DAILY PRN Rash 02/17/24 0 02/17/24 History Past Med/Surg History Medical History COVID-19 Lichen sclerosus GERD (gastroesophageal reflux disease) Depression Anxiety Migraine Tachycardia Hypertension Sleep apnea HAD SLEEP STUDY TEST, NO CPAP OR BIPAP ORDERED Lung nodules Asthma Hypothyroid Surgical History Nausea and vomiting after administration of anesthetic agent History of breast biopsy L BENIGN History of dilatation and curettage History of total hip arthroplasty R HIP X2 History of esophagogastroduodenoscopy (EGD) History of tooth extraction WISDOM TEETH History of tonsillectomy Family History Mother Diabetes Kidney disease Congestive heart failure Unknown Family history of diabetes mellitus Son Asthma Father Carotid artery aneurysm Brother Dyslipidemia Brother Dyslipidemia Brother No problems noted. Son No problems noted. Daughter No problems noted. Denies family history of Ovarian cancer Prostate cancer Myocardial infarction Breast cancer Colorectal cancer Social History Smoking Status: Former smoker Tobacco Type: Cigarettes Age Started Using Tobacco: 14; Age Quit Using Tobacco: 28; packs per day: 1; Cigarettes Per Day: 20; Second Hand Exposure: No (PARENTS, BROTHER, SMOKED); Do You Dip or Chew Tobacco: No; Hx Alcohol Use: No Hx Substance Use: No Preferred Language: Iranian Communication Ability: Effective Visual Impairment: No Limitations Hearing Ability: Normal Floatlight Loading Supervisor Required: No Beliefs That Will Affect Care: None marital status: Current Living Situation: Spouse current occupational status: employed current occupation: art educator How many Children do You have: 3 Other Information That Helps Us Care for You: No Feels Safe at Home: Yes Safety Concerns: Feels Safe At This Time Childhood Exposure to Second-Hand Smoke: Yes Diet: regular caffeine: Yes during the past year weight has: remained stable Dental Care, Regularly: Yes Physical Activity Frequency: Daily Seatbelt Use: always Sunscreen Use: Yes Assistive Devices: None Review of Systems Review of Systems: See HPI above Physical Exam Physical Exam: General: Mild respiratory distress; pleasant affect; non-toxic appearing; cooperative; SpO2 96% on room air HEENT: normocephalic, atraumatic; no scleral icterus; PERRLA; moist mucus membrane; vision and hearing grossly intact Neck: supple; no lymphadenopathy; trachea midline Skin: Diaphoretic; mild erythema; warm, without signs of tenting; no cyanosis; no rashes, bruising, or lesions noted CV: chest wall NTP; RR, tachycardic at 112 bpm; S1/S2 normal; no murmurs/rubs/gallops; pulses intact and symmetric at radial, DP, and PT Lungs: Mild conversational dyspnea; symmetrical chest wall expansion; expiratory wheeze auscultated at the lower lung urias bilaterally ABD: Soft, NTP; BS present; no rebound/guarding; no distention MSK: no tics or fasciculations; no edema noted in the LEs b/l, nonerythematous Neuro: A&Ox3; normal mood and affect; fluent speech; no focal deficits; sensation grossly intact in the LEs b/l Results & Data Results & Data Vital Signs (Past 12 Hours) Vital Signs Temp Pulse Pulse Resp BP BP Pulse Ox 02/17/24 11:10 78 18 139/65 98 02/17/24 09:56 84 18 95 02/17/24 09:31 84 02/17/24 09:30 79 26 H 96 02/17/24 09:30 96 02/17/24 09:30 02/17/24 09:20 36.1 C L 88 26 H 120/76 96 O2 Del Method 02/17/24 11:10 02/17/24 09:56 Room Air 02/17/24 09:31 02/17/24 09:30 Room Air 02/17/24 09:30 Room Air 02/17/24 09:30 Room Air 02/17/24 09:20 Room Air Laboratory Results Abnormal lab results 02/17/24 02/17/24 02/17/24 Range/Units 09:30 09:37 10:17 [place] # (Auto) 0.65 H (0.11-0.59) K/uL D-Dimer 840 H* (0-500) ug/L FEU VBG pH 7.49 H (7.36-7.41) VBG pCO2 31 L (38-50) mmHg Parainfluenza 3 (PCR) DETECTED A (NotDetected) Diagnostic Findings Chest X-Ray 02/17/24 09:32 XR chest 1V portable HISTORY: dyspnea COMPARISON: Chest 07/06/2021. FINDINGS: The lungs are clear. Cardiac silhouette is normal in size. No pleural effusions. No pneumothorax. IMPRESSION: No acute process. ACT 112: Negative or not required by law. Electronically signed by: Jeramie Brooks M.D. 02/17/2024 10:00 AM Chest CTA 02/17/24 10:54 CT ANGIOGRAPHY OF THE CHEST, PULMONARY EMBOLUS PROTOCOL CLINICAL HISTORY: dyspnea, elevated D dimer COMPARISON STUDY: Chest CT July 25, 2023. Chest radiograph performed earlier today. TECHNIQUE: Following IV administration of 119 mL of Optiray, helical axial images of the chest were obtained utilizing the pulmonary embolus protocol. Maximal intensity projections and sagittal and coronal reformats were viewed on an independent 3D workstation. IV contrast was administered without complication. Automated exposure control was utilized for the study. A dose lowering technique was utilized adhering to the principles of ALARA. CT DOSE: 709.16 mGy.cm FINDINGS: No pulmonary emboli are identified although this exam is significantly compromised by respiratory motion artifact which obscures the lower lobe pulmonary arteries. There is no thoracic aortic dissection. Size of the heart is normal. There is no pericardial effusion. Prominent bilateral lower cervical and upper mediastinal lymph nodes have increased in size since CT of July 25, 2023. An index left level 4 cervical lymph node on image 199 measures 8 mm in short axis diameter. A right paratracheal lymph node on image 170 measures 0.7 cm. The central airways are patent. Lungs are suboptimally assessed due to respiratory motion. Moderate alveolar opacities within the right middle lobe are present. There is no cavitation. Central airways are patent. There is no pneumothorax or pleural effusion. Visualized portions of the upper abdomen are unremarkable. IMPRESSION: 1. Exam significantly compromised by respiratory motion. No pulmonary emboli identified. 2. Moderate right middle lobe alveolar opacities suggestive of pneumonia. 3. Prominent bilateral lower cervical and upper mediastinal lymph nodes. Although indeterminate, these are probably benign and may be reactive. A follow- up chest CT in 6 months to ensure resolution is recommended. ACT 112: Negative or not required by law. Electronically signed by: Mc Giles M.D. 02/17/2024 12:22 PM ECG Additional Comments: ECG revealed NSR at 85 bpm; QTc 404 Code Status & VTE Plan Code Status Full code VTE Prophylaxis Plan VTE Prophylaxis will be ordered: Yes Supervising Physician Co-Signing Physician Notes I personally saw and examined the patient. I independently reviewed the labs, EKG, imaging, problem list, medication list, past medical history and family history. I verified all dalton points and agree with Jeramie Yang PA-C with the following exceptions and/or additions: 58-year-old female with asthma presents to the ER with cough, blood-tinged mucus, shortness of breath and respiratory distress. O/E Alert and orientated x 3, accessory muscle use, able to complete sentences, inspiratory and expiratory wheeze throughout, no crackles, abdomen soft nontender, no pedal edema A/P Asthma with parainfluenza virus - suspect consolidation on CT is just a parainfluenza virus and will continue with atypical coverage alone with the lack of white blood counts and procalcitonin negative, she has had bad reactions to prednisone previously therefore use dexamethasone 10 mg now then 4 mg q.6 hourly. Formoterol/budesonide nebs BID, DuoNebs. However unclear how much her wheezing is down to parainfluenza versus asthma and she may need just time to get over this. Standard precautions only required. Acute respiratory distress without hypoxia PG Care Time/CCT Total # of Minutes Spent Total Time Spent with Patient: Total time spent is greater than 50% in coordination of care (as documented) at patient's floor/unit and/or counseling patient: Coding [place] [address] INT INP/OBS CARE 3/75MIN Patient Type Established Medical Decision Making Moderate Complexity Diagnoses Parainfluenza virus infection B34.8 Asthma exacerbation J45.901 Hypothyroidism E03.9 Anxiety F41.9
--- NOTE | 2024-02-17 12:25 | CT Scan Report ---
CT ANGIOGRAPHY OF THE CHEST, PULMONARY EMBOLUS PROTOCOL CLINICAL HISTORY: dyspnea, elevated D dimer COMPARISON STUDY: Chest CT July 25, 2023. Chest radiograph performed earlier today. TECHNIQUE: Following IV administration of 119 mL of Optiray, helical axial images of the chest were o btained utilizing the pulmonary embolus protocol. Maximal intensity projections and sagittal and cor onal reformats were viewed on an independent 3D workstation. IV contrast was administered without co mplication. Automated exposure control was utilized for the study. A dose lowering technique was ut ilized adhering to the principles of ALARA. CT DOSE: 709.16 mGy.cm FINDINGS: No pulmonary emboli are identified although this exam is significantly compromised by resp iratory motion artifact which obscures the lower lobe pulmonary arteries. There is no thoracic aortic dissection. Size of the heart is normal. There is no pericardial effusion. Prominent bilateral lower cervical and upper mediastinal lymph nodes have increased in size since CT of July 25, 2023. An i ndex left level 4 cervical lymph node on image 199 measures 8 mm in short axis diameter. A right para tracheal lymph node on image 170 measures 0.7 cm. The central airways are patent. Lungs are suboptima lly assessed due to respiratory motion. Moderate alveolar opacities within the right middle lobe are present. There is no cavitation. Central airways are patent. There is no pneumothorax or pleural effu nohemi. Visualized portions of the upper abdomen are unremarkable. IMPRESSION: 1. Exam significantly compromised by respiratory motion. No pulmonary emboli identified. 2. Moderate right middle lobe alveolar opacities suggestive of pneumonia. 3. Prominent bilateral lower cervical and upper mediastinal lymph nodes. Although indeterminate, thes e are probably benign and may be reactive. A follow-up chest CT in 6 months to ensure resolution is r ecommended. ACT 112: Negative or not required by law. Electronically signed by: Mc Giles M.D. 02/17/2024 12:22 PM
[2024-02-17] MEDS: cefTRIAXone SODIUM 2,000 MG/50 ML BAG IV STA (12:34)
[2024-02-17] MEDS: methylPREDNISolone 125 MG/2 ML VIAL IV STA (12:35)
[2024-02-17] MEDS: SODIUM CHLORIDE 0.9% 1,000 ML IV SCH (12:35)
[2024-02-17] MEDS: MAGNESIUM SULFATE / D5W 1 GM/100 ML BAG IV SCH (12:54)
[2024-02-17] MEDS ORDERED: ACETAMINOPHEN 325 MG TAB PO PRN (13:19)
[2024-02-17] MEDS: dexAMETHasone 10 MG in SYRINGE 0 ML IV STA (13:36)
[2024-02-17] MEDS: AZITHROMYCIN 500 MG in DEXTROSE 5% 250 ML IV STA (13:38)
[2024-02-17] MEDS: ALBUT/IPRATROP 3MG/0.5MG NEB 3 ML VIAL INH SCH (14:02)
[2024-02-17] MEDS: FORMOTEROL 20 MCG/2 ML VIAL NEB SCH (19:41)
[2024-02-17] MEDS: BUDESONIDE 0.5 MG/2 ML VIAL (PULMICORT) NEB SCH (19:41)
[2024-02-17] MEDS: ENOXAPARIN INJ 40 MG/0.4 ML SYR SQ SCH (21:11)
[2024-02-17] MEDS: CETIRIZINE HCL 10 MG TABLET PO SCH (21:11)
[2024-02-17] MEDS: guaiFENesin 600 MG TABCR PO SCH (21:11)
--- NOTE | 2024-02-17 22:29 | Electrocardiogram Report ---
Test Reason : Blood Pressure : / mmHG Vent. Rate : 085 BPM Atrial Rate : 085 BPM P-R Int : 136 ms QRS Dur : 082 ms QT Int : 340 ms P-R-T Axes : 059 065 036 degrees QTc Int : 404 ms Normal sinus rhythm Normal ECG When compared with ECG of 21-SEP-2014 08:56, No significant change was found Confirmed by Chan Biswas ([id number]) on 02/17/2024 10:28:49 PM Referred By: REFERRED SELF Confirmed By:Chan Biswas
--- NOTE | 2024-02-18 07:04 | Hospitalist Progress Note ---
Date of Service February 18, 2024 Assessment & Plan (1) Parainfluenza virus infection: (2) Asthma exacerbation: (3) Hypothyroidism: (4) Anxiety: Plan Clotilde is a 58 year old female with a history of asthma and smoking who presents with worsening shortness of breath and cold-like symptoms since Sunday 02/11. 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 Early Saturday morning at around 12:30 AM she woke up with chills and then later at 4:30 AM was drenched in sweat. She tried using antihistamines and albuterol inhaler but it did not help. On presentation to the emergency department she was positive for parainfluenza [address] showed opacities in the right middle lung suggestive of pneumonia. Chest XR showed no acute processes. 1) Parainfluenza virus infection: Plan: Worsening SOB and cold-like symptoms since Sunday 02/11, no acute processes on chest XR, chest CT suggestive of pneumonia in the middle right lobe, parainfluenza 3 positive. CBG 7.49/31/64/24. Likely a viral pneumonia and potentially a secondary bacterial pneumonia given timeline of symptoms and chest CT findings -Vitals are stable on room air, afebrile -Magnesium barely elevated (2.5 mg/dl), BUN/creatinine barely elevated (20.8) -Calcitonin 0.14 ng/ml, sepsis unlikely -Sputum culture and gram stain pending -Flutter valve qid -Continue guaifenesin 600 mg p.o. q12h -Stop azithromycin, start Rocephin 1000 mg in 50 ml q12h. Culture and gram stain pending. -Trend magnesium and BUN/creatinine for worsening -Continue supportive care with IV fluids and pain control (2) Asthma exacerbation: Plan: History of asthma, has an inhaler at home. Does not respond well to prednisone/Solu-Medrol per patient. -Continue Decadron 4 mg IV q6h -Continue Budesonide 0.5 mg neb BIDR -Continue Formoterol 20 mcg neb BIDR -Continue DuoNeb 3 mL q6h (3) Hypothyroidism: Plan: TSH within normal limits (0.349 uIu/ml) -Continue levothyroxine (4) Anxiety: Plan: -Continue sertraline Plan Disposition: MedSurg telemetry Full code Regular diet VTE PPx: Lovenox 40 mg SQ q24h Admission and Anticipated Discharge Date Admission Date: February 17, 2024 Erika Denis is feeling better this morning. She is now able to talk a bit without coughing and is able to eat breakfast. Yesterday she was unable to speak without going into a coughing fit. She still coughs intermittently, especially after moving around the room. She is producing yellow colored sputum. She does not feel short of breath or racing heart. She still cannot taste or smell and notes having a headache. She reports drinking a lot of water. She denies nausea, vomiting, diarrhea, and aches and pains this AM. She is wondering if after this she can still see her database administrator 02/23 for her seasonal allergy shot, I reassured her that this would be fine. Review of Systems Review of Systems: Negative except as noted above. Physical Exam Constitutional: Alert, oriented, in no acute distress. Respiratory: + cough Auscultation: + wheezes (righ t side) Cardiovascular: Rate/Rhythm: regular rate and regular rhythm Heart Sounds: normal S1 and normal S2; no gallop, no murmur and no cardiac rub Results & Data Results & Data Vital Signs (Past 12 Hours) Vital Signs Temp Pulse Pulse Pulse Resp BP Pulse Ox 02/18/24 06:48 02/18/24 03:28 36.5 C 85 20 118/75 94 02/17/24 23:49 36.7 C 83 20 117/69 92 02/17/24 22:33 02/17/24 22:10 92 H 02/17/24 20:00 36.8 C 102 H 20 113/70 92 02/17/24 19:43 87 18 95 O2 Del Method 02/18/24 06:48 Room Air 02/18/24 03:28 Room Air 02/17/24 23:49 Room Air 02/17/24 22:33 Room Air 02/17/24 22:10 02/17/24 20:00 Room Air 02/17/24 19:43 Room Air Laboratory Results 02/18/24 02/17/24 02/17/24 07:15 10:17 09:37 WBC 9.10 RBC 4.99 Hgb 14.5 Hct 43.9 MCV 88.0 MCH 29.1 MCHC 33.0 RDW Std Deviation 46.8 H RDW Coeff of Velia 14.6 H Plt Count 285 MPV 9.7 Immature Gran % (Auto) 0.3 Neut % (Auto) 65.8 Lymph % (Auto) 24.9 [place] % (Auto) 8.7 Eos % (Auto) 0.0 Baso % (Auto) 0.3 Neut # (Auto) 5.98 Lymph # (Auto) 2.27 [place] # (Auto) 0.79 H Eos # (Auto) 0.00 Baso # (Auto) 0.03 Immature Gran # (Auto) 0.03 Toxic Vacuolation PT INR APTT PTT Ratio D-Dimer VBG pH 7.49 H VBG pCO2 31 L VBG pO2 64 VBG HCO3 24 VBG O2 Saturation 93.4 VBG Base Excess 1.0 Sodium 140 Potassium 4.7 D Chloride 106 Carbon Dioxide 24 Anion Gap 10 BUN 15 Creatinine 0.72 Est Cr Clr Drug Dosing 86.3 Est GFR ( Amer) 105.5 Est GFR (Non-Af Amer) 91.0 BUN/Creatinine Ratio 20.8 H Glucose 110 H Calcium 9.3 Magnesium 2.5 H Total Bilirubin AST ALT Alkaline Phosphatase Troponin I High Sens Total Protein Albumin Globulin Albumin/Globulin Ratio Procalcitonin TSH Adenovirus (PCR) Not Detected B. pertussis DNA (PCR) Not Detected B.parapertussis DNA PCR Not Detected C. pneumoniae DNA (PCR) Not Detected Coronavirus OC43 (PCR) Not Detected Coronavirus HKU1 (PCR) Not Detected Coronavirus 229E (PCR) Not Detected SARS-CoV-2 (PCR) Not Detected Coronavirus NL63 (PCR) Not Detected Human Metapneumovir PCR Not Detected Influenza Type A (PCR) Not Detected Influenza Type B (PCR) Not Detected M. pneumoniae (PCR) Not Detected Parainfluenza 1 (PCR) Not Detected Parainfluenza 2 (PCR) Not Detected Parainfluenza 3 (PCR) DETECTED A Parainfluenza 4 (PCR) Not Detected RSV (PCR) Not Detected Entero/Rhino (PCR) Not Detected 02/17/24 09:30 WBC 5.86 RBC 5.21 Hgb 15.3 Hct 45.3 MCV 86.9 MCH 29.4 MCHC 33.8 RDW Std Deviation 45.6 RDW Coeff of Velia 14.2 Plt Count 256 MPV 9.8 Immature Gran % (Auto) 0.2 Neut % (Auto) 43.6 Lymph % (Auto) 41.0 [place] % (Auto) 11.1 Eos % (Auto) 3.4 Baso % (Auto) 0.7 Neut # (Auto) 2.56 Lymph # (Auto) 2.40 [place] # (Auto) 0.65 H Eos # (Auto) 0.20 Baso # (Auto) 0.04 Immature Gran # (Auto) 0.01 Toxic Vacuolation 1+ PT 10.3 INR 0.9 APTT 28 PTT Ratio 1.0 D-Dimer 840 H* VBG pH VBG pCO2 VBG pO2 VBG HCO3 VBG O2 Saturation VBG Base Excess Sodium 138 Potassium 3.9 Chloride 105 Carbon Dioxide 25 Anion Gap 8 BUN 11 Creatinine 0.63 Est Cr Clr Drug Dosing 98.8 Est GFR ( Amer) 113.0 Est GFR (Non-Af Amer) 97.5 BUN/Creatinine Ratio 17.5 Glucose 88 Calcium 9.0 Magnesium 2.2 Total Bilirubin 0.7 AST 22 ALT 22 Alkaline Phosphatase 69 Troponin I High Sens 2.9 Total Protein 7.8 Albumin 4.3 Globulin 3.5 Albumin/Globulin Ratio 1.2 Procalcitonin 0.14 TSH 0.349 Adenovirus (PCR) B. pertussis DNA (PCR) B.parapertussis DNA PCR C. pneumoniae DNA (PCR) Coronavirus OC43 (PCR) Coronavirus HKU1 (PCR) Coronavirus 229E (PCR) SARS-CoV-2 (PCR) Coronavirus NL63 (PCR) Human Metapneumovir PCR Influenza Type A (PCR) Influenza Type B (PCR) M. pneumoniae (PCR) Parainfluenza 1 (PCR) Parainfluenza 2 (PCR) Parainfluenza 3 (PCR) Parainfluenza 4 (PCR) RSV (PCR) Entero/Rhino (PCR)
[2024-02-18 07:32] LABS: Hematocrit (blood only) 43.9 % (37.0-47.0); Hemoglobin 14.5 g/dl (12.0-16.0); Mean Corpuscular Hemoglobin 29.1 pg (25.0-34.0); Mean Platelet Volume 9.7 fL (9.4-12.4); Platelet Count 285 K/uL (130-400); RDW Coefficient of Variation 14.6 % (11.5-14.5); RDW Standard Deviation 46.8 fL (36.4-46.3); Red Blood Count 4.99 M/uL (4.20-5.40)
[2024-02-18] MEDS: dexAMETHasone 4 MG in SYRINGE 0 ML IV SCH (07:33)
[2024-02-18 07:57] LABS: Basophils # (auto) 0.03 K/uL (0.00-0.20); Basophils % (auto) 0.3 %; Immature Granulocytes # (auto) 0.03 K/uL (0.01-0.20); Immature Granulocytes % (auto) 0.3 %; Lymphocytes # (auto) 2.27 K/uL (1.20-3.40); Lymphocytes % (auto) 24.9 %; Monocytes # (auto) 0.79 K/uL (0.11-0.59); Monocytes % (auto) 8.7 %; Neutrophils # (auto) 5.98 K/uL (1.40-6.50); Neutrophils % (auto) 65.8 %
[2024-02-18 08:05] LABS: BUN Creatinine Ratio 20.8 (10-20); Calcium 9.3 mg/dl (8.6-10.3); Creatinine Clr Calc Pharmacy 86.3 ml/min; Est GFR (African American) 105.5 ml/min; Magnesium 2.5 mg/dl (1.7-2.4); Potassium 4.7 mmol/L (3.5-5.1)
[2024-02-18] MEDS: LEVOTHYROXINE SODIUM 125 MCG TABLET PO SCH (08:18)
[2024-02-18] MEDS: SERTRALINE HCL 50 MG TABLET PO SCH (08:19)
[2024-02-18 09:56] LABS: Appearance Urine Clear (Clear); Bilirubin Urine Negative (Negative); Blood Urine Negative (Negative); Color Urine Yellow; Glucose Urine UA 2+ (Negative); Ketones Urine Negative (Negative); Leukocyte Esterase Urine Negative (Negative); Nitrite Urine Negative (Negative); Protein Urine Negative (Negative); Specific Gravity Urine 1.013 (1.000-1.030); Urobilinogen Urine Negative (Negative); pH Urine 5.5 (4.5-7.5)
[2024-02-18] MEDS: cefTRIAXone SODIUM 1,000 MG/50 ML BAG IV SCH (10:47)
[2024-02-18] MEDS: AZITHROMYCIN 500 MG in DEXTROSE 5% 250 ML IV SCH (12:25)
--- NOTE | 2024-02-18 17:01 | Discharge Summary ---
Date of Service February 18, 2024 Admission HPI Per Admitting Provider Adeel is a 58-year-old female with PMH of asthma, hypothyroidism, Graves' disease, depression, anxiety, GERD, and allergic rhinitis. She presented for worsening SOB and cold-like symptoms that began on Sunday 02/11. Patient reports that started with a bad sore throat and sneezing, then progressed Saturday night to chills and night sweats. She has been taking naproxen 1 tablet daily for body aches. She endorses SOB both at rest and with exertion, which is new for her. She also reports that the breathing is worse when she lies flat on her back, and becomes exacerbated with deep breaths, which cause coughing fits. She does not use supplemental oxygen at home. Additional symptoms include loss of taste and smell, wheezing, and 1 episode of hemoptysis (however patient did note that she had a nosebleed just prior to this episode, and did not have hemoptysis prior to the nosebleed). She does not believe she has been around any sick contacts. She does have an inhaler at home, that she normally uses as needed, but she has been requiring it around 3 times per day over the past week. The only medication she took this morning was levothyroxine. In the past, patient reports she has not done well on prednisone tapers, and requests to avoid if possible. No history of DVT/PE. Patient denies smoking, tobacco use, and recent alcohol use. Patient's vitals are stable at time of admission; SpO2 98% on RA. ED course: Rocephin 2000 mg IV DuoNeb 12 mL Solu-Medrol 60 mg IV NSS 1000 mL IV ROS: Patient endorses worsening fatigue, chills, night-sweats, joint pain / body aches, sore throat, loss of taste/smell, chest tightness, productive cough (dark yellow with one episode of blood-tinged sputum; in the setting of right-sided nose bleed; was not coughing up blood prior to nose bleed), wheezing, SOB both at rest and with exertion, and orthopnea. Patient denies fever, dizziness, lightheadedness, UMANZOR, changes in vision, pleuritic CP, pain or pressure in the left arm/jaw, abdominal pain, N/V/D, changes in urinary/bowel habits, or numbness/tingling/swelling/redness in the legs. Admission Exam Per Admitting Provider Physical Exam: General: Mild respiratory distress; pleasant affect; non-toxic appearing; cooperative; SpO2 96% on room air HEENT: normocephalic, atraumatic; no scleral icterus; PERRLA; moist mucus membrane; vision and hearing grossly intact Neck: supple; no lymphadenopathy; trachea midline Skin: Diaphoretic; mild erythema; warm, without signs of tenting; no cyanosis; no rashes, bruising, or lesions noted CV: chest wall NTP; RR, tachycardic at 112 bpm; S1/S2 normal; no murmurs/rubs/gallops; pulses intact and symmetric at radial, DP, and PT Lungs: Mild conversational dyspnea; symmetrical chest wall expansion; expiratory wheeze auscultated at the lower lung urias bilaterally ABD: Soft, NTP; BS present; no rebound/guarding; no distention MSK: no tics or fasciculations; no edema noted in the LEs b/l, nonerythematous Neuro: A&Ox3; normal mood and affect; fluent speech; no focal deficits; sensation grossly intact in the LEs b/l Principal Diagnosis Pneumonia Discharge Exam Constitutional WD/WN, vitals as above Respiratory normal respiratory effort; no respiratory distress and no labored breathing Auscultation: + wheezes (faint) Cardiovascular RRR, no murmur, no edema Gastrointestinal (Abdomen) normal bowel sounds, soft, nontender, no hepatosplenomegaly Skin no rashes, warm and dry Discharge Data Allergies Allergy/AdvReac Type Severity Reaction Status Date / Time Sulfa (Sulfonamide Allergy Mild RASH Verified 12/27/23 13:03 Antibiotics) latex Allergy Unknown RASH Verified 12/27/23 13:03 morphine Allergy Unknown VOMITING Verified 12/27/23 13:03 animal dander Allergy Verified 12/27/23 13:03 bupropion [From Wellbutrin] Allergy Verified 12/27/23 13:03 desvenlafaxine [From Pristiq] Allergy Verified 12/27/23 13:03 duloxetine [From Cymbalta] Allergy Verified 12/27/23 13:03 grass pollen Allergy Verified 12/27/23 13:03 house dust Allergy Verified 12/27/23 13:03 mold Allergy Verified 12/27/23 13:03 topiramate [From Topamax] Allergy Verified 12/27/23 13:03 tuberculin,PPD,multi-puncture Allergy Verified 12/27/23 13:03 venlafaxine Allergy Verified 12/27/23 13:03 citalopram AdvReac Verified 12/27/23 13:03 escitalopram [From Lexapro] AdvReac Verified 12/27/23 13:03 Venlafaxine Analogues AdvReac Verified 12/27/23 13:03 Consultations 02/17/24 12:18 ED Decision to Admit Stat Ordered Studies 02/17/24 10:54 CT angio chest PE protocol Stat Hospital Course (1) Parainfluenza virus infection: (2) Asthma exacerbation: (3) Hypothyroidism: (4) Anxiety: Kyleigh Mabry is a 58 year old female with a history of asthma and smoking who presents with worsening shortness of breath and cold-like symptoms Parainfluenza virus infection superimposed Bacteria pneumonia Worsening SOB and cold-like symptoms since Sunday 02/11, no acute processes on chest XR, chest CT suggestive of pneumonia in the middle right lobe, parainfluenza 3 positive. CBG 7.49///24. Likely a viral pneumonia and potentially a secondary bacterial pneumonia given timeline of symptoms and chest CT finding -Calcitonin 0.14 ng/ml, sepsis unlikely -Sputum culture and gram stain pending -s/p IV Azithromycin for atypical bacteria -started on IV Rocephin switch to Augmentin to complete 5 days Asthma exacerbation: History of asthma, has an inhaler at home. Does not respond well to prednisone/Solu-Medrol per patient. Short course of steroids: s/p Decadron 4 mg IV q6h, will transition to PO for a total of 4 days -Continue Flovent Hypothyroidism: TSH within normal limits (0.349 uIu/ml) -Continue levothyroxine Anxiety: -Continue sertraline Total Time Total Time Spent Total Time Spent (In Minutes): <30 Discharge Plan Discharge Items Patient Disposition: Home - Self-Care Reason For Visit: SOB/DYSPNEA Discharge Diagnosis: Parainfluenza with superimpose bacteria pneumonia Condition on Discharge: Good Activity: Resume your previous activity Non-emergency contact: Primary Care Provider Call non-emergency contact if: you have any medication questions and your temperature is above 101 Follow-up/Referrals: Eulalia Shi MD [Primary Care Provider] - 02/24/24 10:20 am Diet: Regular Addtl Attending Provider Instructions: You were admitted due to pneumonia and asthma exacerbation. You were treated with IV antibiotics and steroids You will be discharge home with: - Augmentin, you will take 1 tab twice a day for 5 days - Short course of steroids: Dexamethasone 4 mg fourth time a day only for 2 days Follow-up appointments: Make a follow-up appointment with your PCP within the next week. It is very important that you follow up with them shortly after discharge from the hospital Keep all your follow-up appointments as already scheduled. If you cannot make an appointment, notify your provider. Medications: Your medication list has been reviewed and reconciled upon discharge to ensure accuracy and continuity of care. An updated list of all your medications is included with your hospital discharge paperwork. Please review this list closely, and make note of any changes Take your medications as instructed; do not skip a dose of your medicines. Make sure all of your doctors know every medicine you are taking (including [id number] medicines, vitamins, and supplements). Call your primary care provider before taking any new medicines (including jikj-[id number] medicines, vitamins, and supplements), because some of these may interact with your current medications, or may make your symptoms worse. Tell your primary care provider if you cannot afford your medications. CALL 911 OR GO TO THE EMERGENCY DEPARTMENT if you experience any of the following: Sudden, severe abdominal pain or nausea/vomiting Severe chest pain, or chest pain that radiates (moves) to your jaw or arm Sudden, severe shortness of breath or difficulty breathing Thank you for allowing us to participate in your care. Pending Studies at Discharge: No Stand-Alone Forms: My [facility] [place], Work/School Release, Smoking Cessation Medications and DC Order Prescriptions: New dexamethasone 4 mg tablet 4 mg PO Q6H 2 Days Qty: 8 0RF amoxicillin-pot clavulanate 875-125 mg tablet 1 tab PO BID 5 Days Qty: 10 0RF Continued cyanocobalamin (vitamin B-12) 1,000 mcg Tablet 1 tab PO QAM Qty: 0 multivitamin Capsule 1 cap PO QAM Qty: 0 levothyroxine 125 mcg tablet 125 mcg PO QAM Qty: 30 5RF sertraline 100 mg tablet 150 mg PO DAILY 90 Days Qty: 135 2RF cetirizine [Zyrtec] 10 mg tablet 10 mg PO HS Qty: 1 0RF cholecalciferol (vitamin D3) 400 unit tablet 400 units PO DAILY Qty: 90 0RF Breo Ellipta 200-25 mcg/dose blister with device 1 inh inhalation DAILY Qty: 180 1RF clobetasol 0.05 % cream 1 applic topical DAILY PRN (Reason: Rash) Discharge Orders: Discharge Order (Routine); Ordered 02/18/24 Ordered By: Murali Mckinnon Admission Data Admit Date/Time: 02/17/24 12:52 Attending Provider: Rafa Javed Admit Provider: James East Primary Care Provider: Eulalia Shi Other Providers: James East Other Interventions: Discharge Summary Assessment (RN) Last Done: 02/18/24 17:31 Supervising Physician Co-Signing Physician Notes I personally examined the patient and verified all dalton points of history and exam, discussed case, and agree with decision making with Dr Omar Mckinnon Feeling better. Still weak and fatigued. Feels up to going home though. Vitals noted, in general she is awake and alert pleasant no distress. Lungs overall fairly clear does have a few scattered wheezes and rhonchi. No accessory muscle use on room air good effort. No focal neurodeficits. Respiratory distressI suspect she had parainfluenza initially, with a secondary bacterial overgrowth, and a little bit of an asthma flare on top of thatshe is doing better. Safe/stable for home. Short course of steroids, antibiotics to cover for what is likely strep pneumoniae or haemophilus type pneumonia, outlined anticipated course of improvement. Otherwise as above.
--- NOTE | 2024-02-18 19:53 | Billing Data ---
Date of Service February 18, 2024 Coding Level of Care Code 17375 IN/OBS DISCH 30 MIN/LESS
== END 2024-02-18 18:04 | disposition home or self-care (01) ==
LOC: EDINP 09:12 → ED 09:12 → SUATTDRO 12:52 → 2W 13:02